=== PATIENT | male | born 1975 | race Caucasian/White ===

== ENCOUNTER 2016-11-27 14:28 | Emergency (ER) | payer MEDICARE | END 2016-11-27 15:15 | disposition home or self-care (01) | LOC: ER1 14:28 | DX: K02.9 Dental caries, unspecified (principal); G25.81 Restless legs syndrome; F17.210 Nicotine dependence, cigarettes, uncomplicated | CPT/HCPCS: 99282 ==

== ENCOUNTER → 2022-01-10 | Outpatient (CLI) | payer OTHER ==
[~2022-01-10] MED LIST: BACTRIM DS TAB1 EACH PO; BACTROBAN NASAL1 G1 TOP; CONDYLOX3.5 GM TP; IBUPROFEN600 MG PO; PREDNISONE 50 M50 MG PO; ZYRTEC10 MG PO
== END ==
LOC: US 08:15
DX: R10.816 Epigastric abdominal tenderness (principal)
CPT/HCPCS: 76700